=== PATIENT | female | born 1990 ===

== ENCOUNTER 2018-08-18 06:14 | Day surgery (SDC) | payer MEDICARE ==
[~2018-08-18] VITALS: Ht 162.6 cm; Wt 81.6 kg
[2018-08-18] VITALS (17 sets, daily range): BP systolic 103–140; BP diastolic 56–88
[2018-08-18] MEDS ORDERED: Muri-Lube ONE (06:57)
[2018-08-18] MEDS ORDERED: Lidocaine 1% 10mg/ml/Epi 0.005mg/ml 30ml vial INJ ONE (06:58)
[2018-08-18] MEDS ORDERED: Bacitracin Oint 15gm Tube TOPIC ONE (06:58)
[2018-08-18] MEDS ORDERED: Bupivacaine 0.5% Inj 30 ml vial INJ ONE (06:58)
[2018-08-18] MEDS ORDERED: ZYRTEC10 MG ORAL (07:00)
[2018-08-18] MEDS ORDERED: PROZAC20 MG ORAL (07:00)
[2018-08-18] MEDS ORDERED: Dyna-Hex 2% Top Sol 2oz TOPIC ONE (07:14)
[2018-08-18] MEDS ORDERED: Lidocaine 1% MPF 10mg/ml 5ml ONE (07:15)
[2018-08-18] MEDS ORDERED: Propofol 200mg/20ml IV ONE (07:15)
[2018-08-18] MEDS ORDERED: fentaNYL 100 mcg/2 mL IV ONE (07:15)
[2018-08-18] MEDS ORDERED: Midazolam 2mg/2ml Inj ONE (07:15)
[2018-08-18] MEDS ORDERED: Succinylcholine 20mg/ml 10ml vial ONE (07:20)
[2018-08-18] MEDS ORDERED: Zemuron 50mg/5ml Inj IV ONE (07:20)
--- NOTE | 2018-08-18 07:22 | Pre-Procedure Note/Attestation ---
Pre-Procedure Note/Attestation Complete Prior to Procedure Planned Procedure: bilateral Indications for Procedure Pre-Operative Diagnosis: gender identity disorder Attestation I attest that I discussed the nature of the procedure; its benefits; risks and complications; and alternatives (and the risks and benefits of such alternatives ), prior to the procedure, with the patient (or the patient's legal civil rights representative). I attest that, if there was a reasonable possibility of needing a blood transfusion, the patient (or the patient's legal civil rights representative) was given the [facility] standardized written summary, pursuant to the [place] Blood Safety Act ([place] Health and Safety Code # 1645, as amended). I attest that I re-evaluated the patient just prior to the surgery and that there has been no change in the patient's H&P, except as documented below: Derek Rajan MD Aug 18, 2018 07:22
--- NOTE | 2018-08-18 07:24 | Anethesia Preoperative Eval ---
Anesthesia Pre-op PMH/ROS General Date of Evaluation: Aug 18, 2018 Time of Evaluation: 07:23 Anesthesiologist: Shantal Rose CRNA ASA Score: ASA 2 Mallampati Score Class I : Soft palate, uvula, fauces, pillars visible Class II: Soft palate, uvula, fauces visible Class III: Soft palate, base of uvula visible Class IV: Only hard plate visible Mallampati Classification: Class I Surgeon: Mohini Diagnosis: Gender Identity Disorder Surgical Procedure: (B) mastectomy with nipple graft Anesthesia History: none Social History: smoking, drug use - Smokes marijuana daily Family History: no anesthesia problems Allergies: Coded Allergies: CEPHALEXIN (Verified Allergy, Unknown, 08/17/18) Medications: see eMAR Patient NPO?: Yes NPO Date: Aug 18, 2018 NPO Time: 00:00 Past Medical History Cardiovascular: Denies: HTN, CAD, MA, valve dz, arrhythmia, other Pulmonary: Denies: asthma, COPD, DANIEL, other Gastrointestinal/Genitourinary: Reports: GERD - triggered with only certain foods, no meds, other - Gender Identity disorder; Denies: CRI, ESRD Neurologic/Psychiatric: Reports: depression/anxiety; Denies: dementia, CVA, TIA, other HEENT: Reports: other - allergic rhinitis; Denies: cataract (L), cataract (R), glaucoma, [place] (L[place] (R) Hematology/Immune: Denies: anemia, DVT, bleeding disorder, other Musculoskeletal/Integumentary: Denies: OA, RA, DJD, DDD, edema, other Other: obesity PMH Narrative: as above PSxH Narrative: wisdom tooth extractions Anesthesia Pre-op Phys. Exam Physician Exam Last Vital Signs Date Time Temp Pulse Resp B/P (MAP) Pulse Ox O2 Delivery O2 Flow Rate FiO2 08/18/18 07:19 97.5 60 20 103/56 99 Room Air Constitutional: NAD Neurologic: CN 2-12 intact Cardiovascular: RRR Respiratory: CTA Gastrointestinal: S/NT/ND Airway Exam Mallampati Score: Class I MO: full Neck: no limitations TMD: >3FB ROM: full Teeth: intact Dentures: no upper, no lower Anesthesia Pre-op A/P Labs See chart, reviewed, WNL Urine Test Test 08/18/18 06:30 Urine HCG, Qualitative Negative (NEGATIVE) Studies Pre-op Studies: EKG - NSR Risk Assessment & Plan Assessment: ASA 2, ok to proceed Plan: GETA Status Change Before Surgery: No Pre-Antibiotics Drug: TBA Shantal Rose CRNA Aug 18, 2018 07:24
[2018-08-18] MEDS ORDERED: CLINDAMYCIN 600 MG IV ONE (07:26)
[2018-08-18] MEDS ORDERED: Neostigmine 1mg/ml 10ml Inj ONE (08:30)
[2018-08-18] MEDS ORDERED: Dexamethasone 4mg/ml vial ONE (08:30)
[2018-08-18] MEDS ORDERED: Glycopyrrolate 0.2mg/ml 1ml Vial ONE (08:30)
[2018-08-18] MEDS ORDERED: Hydromorphone 0.5mg/0.5ml inj IVP PRN (09:15)
[2018-08-18] MEDS ORDERED: DiphenhydrAMINE 50mg/ml Inj IVP PRN (09:15)
--- NOTE | 2018-08-18 11:26 | Operative Note - PDOC ---
Operative Note Operative Note Date of Operation/Procedure: Aug 18, 2018 Pre-op Diagnosis: gender identity disorder Procedure: bilateral mastectomy with nipple areola reconstruction with full-thickness grafts Post-op Diagnosis: same as pre-op Surgeon: Mohini Anesthesia: general Specimen: yes - 1) right breast, 2) left breast Complications: none Condition: stable Estimated Blood Loss: volume - 50 cc Drains: SASHA - x2 Implant(s) used?: No Derek Rajan MD Aug 18, 2018 11:26
--- NOTE | 2018-08-18 11:27 | Discharge Instructions ---
Discharge Instructions Discharge Instructions Follow up with: Dr. Rajan Aug 23 Diet: regular Resume Normal Activity?: Yes Activity: ambulate For Surgical Patients Dressing Care: keep dry and clean May shower: No - sponge bathe only For Congestive Heart Failure Reminder Report to your physician any weight gain of 5 pounds or more in one week. Derek Rajan MD Aug 18, 2018 11:27
--- NOTE | 2018-08-18 11:43 | Immediate Post-Op Evaluation ---
Immediate Post-Op Evalulation Immediate Post-Op Evalulation Procedure: (B) mastectomy with nipple graft Date of Evaluation: Aug 18, 2018 Time of Evaluation: 11:25 IV Fluids: LR 2400ml Estimated Blood Loss: 30 Blood Pressure Systolic: 140 Blood Pressure Diastolic: 70 Pulse Rate: 82 Respiratory Rate: 26 O2 Sat by Pulse Oximetry: 100 Temperature (Fahrenheit): 98.0 Pain Score (1-10): 0 Nausea: Yes Vomiting: Yes - bilious vomit x 1, pt comfortable, no other c/o N/V after Patient Status: awake, reacts, patent, extubated, nausea, vomiting Hydration Status: adequate Drug: Clindamycin Given Within 1 Hr of Incision: Yes Time Given: 08:00 Shantal Rose CRNA Aug 18, 2018 11:43
[2018-08-18] MEDS ORDERED: Metoclopramide 10mg/2ml Inj IVP SCH (12:00)
--- NOTE | 2018-08-18 12:07 | 48 Hour Post Anesthesia Eval ---
Post Anesthesia Evaluation Procedure: (B) mastectomy with nipple graft Date of Evaluation: Aug 18, 2018 Time of Evaluation: 12:04 Blood Pressure Systolic: 117 0: 79 Pulse Rate: 96 Respiratory Rate: 20 Temperature (Fahrenheit): 98. O2 Sat by Pulse Oximetry: 99 Airway: patent Nausea: Yes Vomiting: Yes - pt still (+) nausea/vomiting, ondasetron 4 MG IV, PRN ativan ordered Pain Intensity: 2 Hydration Status: adequate Cardiopulmonary Status: stable Mental Status/LOC: patient returned to baseline Follow-up Care/Observations: per plastic surgery Post-Anesthesia Complications: none Follow-up care needed: N/A Shantal Rose CRNA Aug 18, 2018 12:07
[2018-08-18] MEDS ORDERED: LORazepam Inj 2mg/ml 1ml IV PRN (12:15)
[2018-08-18] MEDS ORDERED: Ketorolac 30mg Inj IV PRN (12:15)
[2018-08-18] MEDS ORDERED: D5 1/2NS 1,000 ML IV SCH (18:01)
[2018-08-18] MEDS ORDERED: HYDROmorphone 1mg/ml Carpuject SUBQ PRN (18:01)
[2018-08-18] MEDS ORDERED: Norco 5mg/325mg tab ORAL PRN (18:01)
[2018-08-18] MEDS ORDERED: Tylenol #3 tab (300mg/30mg) ORAL PRN (18:01)
--- NOTE | 2018-08-18 20:00 | Operative Note - Dictated ---
DATE OF OPERATION: 08/18/2018 PREOPERATIVE DIAGNOSIS: Gender identity disorder. POSTOPERATIVE DIAGNOSIS: Gender identity disorder. PROCEDURE: 1. Bilateral mastectomy. 2. Bilateral nipple areola reconstruction utilizing full-thickness grafts (each graft 2.5 x 2.5 cm). SURGEON: Derek Rajan M.D. ANESTHESIA: General. ESTIMATED BLOOD LOSS: 50 mL. SPECIMENS: 1. Right breast. 2. Left breast. DRAINS: Fa 15-[place] Andrei x2. COMPLICATIONS: None. CONDITION TO RECOVERY ROOM: Stable. INDICATION FOR PROCEDURE: This is a very pleasant 27-year-old trans male, who desires top surgery mastectomy as part of his transition. He has the requisite letter of recommendation from his therapist and meets all WPATH criteria for top surgery. I have discussed the risks, benefits, and alternatives of the procedure with him including, but not limited to, bleeding, infection, scarring, nerve injury, asymmetry, contour deformity, hematoma, seroma, loss of nipple sensation, loss of nipple graft, and need for additional surgery including revisions. I discussed the orientation of the incisions and the unpredictable nature of scarring. No guarantees were made regarding the outcome. All of his questions have been answered to the best of my ability. He verbalized understanding with everything that we discussed and wishes to proceed. DESCRIPTION OF PROCEDURE: The patient was identified in the preoperative holding area and marked in the standing position. He was then brought to the operating room where he was placed in the supine position on the operating room table with his arms extended on arm boards. All bony prominences were adequately padded. Sequential compression devices were placed and intravenous antibiotics were administered. After induction of anesthesia, the patient's chest was prepped and draped in sterile fashion. Starting on the left breast first, the nipple areola complex was placed on manual stretch and a [place] measuring 2.5 cm in diameter was drawn centered around the nipple. Next, the subdermal plane was infiltrated with 3 mL of 1% lidocaine with epinephrine. I then used a 15 blade scalpel to incise the areolar marking and proceeded to harvest a full-thickness nipple areola composite graft. The graft was subsequently defatted, wrapped in wet gauze, and placed on the back table. I then made the inframammary fold incision using a 10 blade scalpel. Dissection proceeded down to the level of the pectoralis major fascia. After this was done, I then made the superior breast incision with a 10 blade scalpel and dissected down to the level of Wendy's fascia. Skin hooks were then used to retract the skin and a plane of dissection was created between the subcutaneous tissue and breast parenchyma heading in a superior direction towards the clavicle. After this was done, the breast parenchyma was then elevated off of the pectoralis major fascia proceeding from a medial to lateral direction. The specimen was passed off the table. Hemostasis was achieved and the wound was irrigated with saline. A 15-[place] Andrei drain was placed within the wound and brought out through a separate stab incision and secured using 2-0 silk sutures. The skin was then temporarily reapproximated with skin sarath. I shifted my attention to the contralateral side where the identical procedure was performed. Afterwards, the patient was sat up on the operating room table and it appeared that he had very reasonable symmetry between the 2 sides of his chest. I then used a marking pen to draw the proposed location of the new nipple areola complex on each side and these markings were confirmed with direct measurements. He was then placed back in the supine position and on each side of the chest, the skin sarath were removed. The Wendy's fascia layer was then reapproximated with interrupted #0 Vicryl suture followed by 3-0 PDS suture for the subdermal layer and a running 3-0 subcuticular Monocryl suture for the skin. Afterwards, each of the incisions was infiltrated with 8 mL of 0.5% plain Marcaine. I then incised each of the markings corresponding to the new location of the nipple areola grafts and the intervening skin was de-epithelialized. Each of the full-thickness nipple areola grafts was then brought onto the table onto the appropriate side of the chest and inset using a running 5-0 fast absorbing suture. Next, several 2-0 silk suture ties were placed around the periphery of each wound. A skin graft bolster was fashioned and secured into place over each nipple areola graft using the 2-0 silk suture ties. Sterile dressings were then applied. The patient tolerated the procedure well and was sent to the recovery room in stable condition. All instrument, sharp, and sponge counts were correct at the conclusion of the case. Derek Maxx Rajan DR: ALBINA JOB#: [id number] CC: [id number]
== END 2018-08-18 16:20 | disposition home or self-care (01) ==
LOC: SUR 06:14
DX: F64.9 Gender identity disorder, unspecified (principal); K21.9 Gastro-esophageal reflux disease without esophagitis; F32.9 Major depressive disorder, single episode, unspecified; F41.9 Anxiety disorder, unspecified; E66.9 Obesity, unspecified; J30.9 Allergic rhinitis, unspecified
CPT/HCPCS: 15200; 19303; 81025; J0330; J1100; J1170; J2250; J2405; J2704; J2710; J3010; J3490; 94003; 94150; S0077